=== PATIENT | female | born 1950 | race Caucasian/White ===

== ENCOUNTER 2017-07-26 12:33 | Emergency (ER) | payer MEDICARE, BC ==
[~2017-07-26] VITALS: Ht 157.5 cm; Wt 90.7 kg
[2017-07-26 14:28] LABS: HEMATOCRIT 38.6 % (37.0-47.0); HEMOGLOBIN 12.8 g/dl (12.0-16.0); IMMATURE GRANULOCYTES 0.3 % (0.0-1.0); MEAN CELL VOLUME 91.3 fL CALC (80.0-100.0); MEAN CORPUSCULAR HGB 30.3 pG CALC (26.0-32.0); MEAN CORPUSCULAR HGB CONC 33.2 g/L CALC (32.0-36.0); RED BLOOD COUNT 4.23 mill/uL (4.20-5.60)
[2017-07-26 14:45] LABS: PROTHROMBIN TIME 10.7 SECONDS (9.0-12.5)
[2017-07-26 14:50] LABS: ANION GAP 18 (6-22 (CALC)); BUN 23 mg/dL (8-23); BUN/CREATININE RATIO 29 (12-20 (CALC)); CALCIUM 9.9 mg/dL (8.4-10.2); CARBON DIOXIDE 24 mmol/l (22-30); CHLORIDE 108 mmol/l (95-108); CREATININE 0.8 mg/dL (0.5-1.0); GFR > 60 ML/MIN (>=60 (CALC)); GFR FOR AFR.AMER. > 60 ML/MIN (>=60 (CALC)); GLUCOSE 100 mg/dL (82-115); NEUT# 2.72 thou/uL (2.00-7.15); POTASSIUM 4.5 mmol/l (3.5-5.1); SODIUM 147 mmol/l (137-146)
[2017-07-26 16:37] VITALS: BP 130/58
== END 2017-07-26 16:38 | disposition short-term general hospital (02) ==
LOC: ED 12:33
PROVIDERS: Family Medicine
DX: H54.61 Unqualified visual loss, right eye, normal vision left eye (principal); F17.200 Nicotine dependence, unspecified, uncomplicated

== ENCOUNTER 2018-07-25 10:27 | Emergency (ER) | payer MEDICARE, BC ==
[~2018-07-25] VITALS: Ht 157.5 cm; Wt 86.2 kg
[2018-07-25] MEDS ORDERED: BUPROPION100 MG PO (10:36)
[2018-07-25] MEDS ORDERED: GABAPENTIN100 MG PO (10:37)
[2018-07-25] MEDS ORDERED: CRESTOR10 MG PO (10:37)
[2018-07-25] MEDS ORDERED: METFORMIN500 MG PO (10:37)
[2018-07-25] MEDS ORDERED: CITALOPRAM20 MG PO (10:37)
[2018-07-25] MEDS ORDERED: VITAMIN D5000 UNIT PO (10:38)
[2018-07-25] MEDS ORDERED: COQ10200 MG PO (10:39)
[2018-07-25] MEDS ORDERED: ROSUVASTATIN CA10 MG PO (10:39)
[2018-07-25] MEDS ORDERED: AZITHROMYCIN500 MG PO (11:18)
[2018-07-25 11:25] VITALS: BP 135/77
== END 2018-07-25 11:25 | disposition home or self-care (01) ==
LOC: ED 10:27
DX: H66.92 Otitis media, unspecified, left ear (principal); E11.9 Type 2 diabetes mellitus without complications; C95.90 Leukemia, unspecified not having achieved remission; Z95.0 Presence of cardiac pacemaker

== ENCOUNTER 2018-12-20 17:29 | Emergency (ER) | payer MEDICARE, BC ==
[~2018-12-20] VITALS: Ht 157.5 cm; Wt 89.0 kg
[~2018-12-20 17:29] MED LIST: AZITHROMYCIN500 MG PO; BUPROPION100 MG PO; CITALOPRAM20 MG PO; COQ10200 MG PO; CRESTOR10 MG PO; GABAPENTIN100 MG PO; METFORMIN500 MG PO; ROSUVASTATIN CA10 MG PO; VITAMIN D5000 UNIT PO
[2018-12-20] MEDS ORDERED: CRESTOR40 MG PO (17:56)
[2018-12-20] MEDS ORDERED: CELEXA20 MG PO (17:56)
[2018-12-20] MEDS ORDERED: NEURONTIN300 MG PO (17:57)
[2018-12-20] MEDS ORDERED: KEFLEX500 M1 PO (18:09)
[2018-12-20 18:15] VITALS: BP 155/72
== END 2018-12-20 18:15 | disposition home or self-care (01) ==
LOC: ED 17:29
DX: T63.481A Toxic effect of venom of other arthropod, accidental (unintentional), initial encounter (principal); L03.011 Cellulitis of right finger; Y92.009 Unspecified place in unspecified non-institutional (private) residence as the place of occurrence of the external cause; R22.31 Localized swelling, mass and lump, right upper limb

== ENCOUNTER 2020-11-28 10:02 | Emergency (ER) | payer MEDICARE, BC ==
[~2020-11-28] VITALS: Ht 154.9 cm; Wt 100.0 kg
[~2020-11-28 10:02] MED LIST changes: +CELEXA20 MG PO; +CRESTOR40 MG PO; +KEFLEX500 M1 PO; +NEURONTIN300 MG PO
[2020-11-28 12:01] LABS: HEMATOCRIT 36.2 % (37.0-47.0); HEMOGLOBIN 11.2 g/dl (12.0-16.0); IMMATURE GRANULOCYTES 0.8 % (0.0-5.0); MEAN CELL VOLUME 93.5 fL CALC (80.0-100.0); MEAN CORPUSCULAR HGB 28.9 pG CALC (26.0-32.0); MEAN CORPUSCULAR HGB CONC 30.9 g/dL CAL (32.0-36.0); NEUT# 2.13 thou/uL (2.00-7.15); RED BLOOD COUNT 3.87 mill/uL (4.20-5.60); RED CELL DISTRI WIDTH 14.6 % (11.5-15.5)
[2020-11-28 12:20] LABS: ALBUMIN 4.2 g/dL (3.2-5.0); ALKALINE PHOSPHATASE 97 u/l (38-126); ANION GAP 12 (6-22 (CALC)); BILIRUBIN, TOTAL 0.8 mg/dL (0.0-1.4); BUN 13 mg/dL (8-23); BUN/CREATININE RATIO 20 (12-20 (CALC)); CARBON DIOXIDE 31 mmol/l (22-30); CHLORIDE 100 mmol/l (95-108); CREATININE 0.7 mg/dL (0.5-1.0); GFR > 60 ML/MIN (>=60 (CALC)); GFR FOR AFR.AMER. > 60 ML/MIN (>=60 (CALC)); POTASSIUM 4.2 mmol/l (3.5-5.1); SGOT/AST 25 u/l (9-36); SODIUM 139 mmol/l (137-146); TOTAL PROTEIN 7.3 g/dL (6.3-8.2)
[2020-11-28] MEDS ORDERED: HYDROCO/APAP1 TA9 PO (14:52)
[2020-11-28 15:54] VITALS: BP 134/62
== END 2020-11-28 16:05 | disposition home or self-care (01) ==
LOC: ED 10:02
PROVIDERS: Family Medicine
DX: R16.1 Splenomegaly, not elsewhere classified (principal); M89.9 Disorder of bone, unspecified; E66.9 Obesity, unspecified; E11.9 Type 2 diabetes mellitus without complications; I10 Essential (primary) hypertension; C95.90 Leukemia, unspecified not having achieved remission; Z95.0 Presence of cardiac pacemaker; Z85.43 Personal history of malignant neoplasm of ovary
CPT/HCPCS: Q9967

== ENCOUNTER 2020-11-29 19:29 | Observation (INO) | payer MEDICARE, BC ==
[~2020-11-29] VITALS: Ht 162.6 cm; Wt 102.0 kg
[~2020-11-29 19:29] MED LIST changes: +HYDROCO/APAP1 TA9 PO
--- NOTE | 2020-11-29 19:35 | NUR ---
BY WC TO ROOM
[2020-11-29 20:18] LABS: HEMATOCRIT 37.6 % (37.0-47.0); HEMOGLOBIN 11.7 g/dl (12.0-16.0); IMMATURE GRANULOCYTES 0.5 % (0.0-5.0); MEAN CORPUSCULAR HGB 29.3 pG CALC (26.0-32.0); MEAN CORPUSCULAR HGB CONC 31.1 g/dL CAL (32.0-36.0); NEUT# 4.68 thou/uL (2.00-7.15); RED CELL DISTRI WIDTH 14.6 % (11.5-15.5)
[2020-11-29 20:29] LABS: ALBUMIN 4.5 g/dL (3.2-5.0); ALKALINE PHOSPHATASE 102 u/l (38-126); AMYLASE 60 u/l (30-110); ANION GAP 14 (6-22 (CALC)); BUN 16 mg/dL (8-23); BUN/CREATININE RATIO 18 (12-20 (CALC)); CARBON DIOXIDE 28 mmol/l (22-30); CHLORIDE 99 mmol/l (95-108); CREATININE 0.9 mg/dL (0.5-1.0); GFR > 60 ML/MIN (>=60 (CALC)); GFR FOR AFR.AMER. > 60 ML/MIN (>=60 (CALC)); LIPASE 199 u/l (23-300); MAGNESIUM 1.5 mg/dL (1.6-2.3); POTASSIUM 4.1 mmol/l (3.5-5.1); SGOT/AST 24 u/l (9-36); SODIUM 137 mmol/l (137-146); TOTAL PROTEIN 7.6 g/dL (6.3-8.2)
--- NOTE | 2020-11-29 20:45 | NUR ---
PT BACK FROM CT. PAIN A LITTLE BETTER 04/13 PT. WAITING ON TEST RESULTS.
[2020-11-29 21:29] LABS: URINE BLOOD DIPSTICK MODERATE (NEGATIVE); URINE COLOR YELLOW; URINE GLUCOSE - DIPSTICK NEGATIVE (NEGATIVE); URINE KETONE NEGATIVE (NEGATIVE); URINE LEUK ESTERASE NEGATIVE (NEGATIVE); URINE NITRITE - DIPSTICK NEGATIVE (Negative); URINE PROTEIN - DIPSTICK 100 mg/dL (NEG-TRACE); URINE SPECIFIC GRAVITY >=1.030; URINE UROBILINOGEN - DIPSTICK 0.2 E.U./dL (0.2)
[2020-11-29 21:30] LABS: URINE BILIRUBIN - DIPSTICK NEGATIVE (NEGATIVE)
[2020-11-29 21:37] LABS: URINE CALCIUM OXALATE CRYSTALS MANY lpf; URINE SQUAMOUS EPITHELIAL CELL FEW EPI/hpf (0-FEW)
--- NOTE | 2020-11-29 21:45 | NUR ---
STILL WAITING ON CT RESULTS.
--- NOTE | 2020-11-29 22:20 | NUR ---
PT CALLED STATING SHE NEEDS HELP GETTING OUT OF THE BED TO CHAIR. INFORMED PT SHE CANNOT SIT IN THE CHAIR. I INFORMED PT PRIOR TO MEDICATING WITH PAIN MEDICATION THAT SHE WOULD NOT BE ABLE TO SIT IN CHAIR DUE TO BEING UNSAFE. INFORMED DR SUE PT STILL HAVING PAIN NEW ORDER TO BE PLACED.
--- NOTE | 2020-11-29 22:29 | NUR ---
MEDICATED WITH TORADOL 30 MG IV.
--- NOTE | 2020-11-29 22:42 | NUR ---
AMBULATED TO AND FROM BATHROOM WITH STANBY ASSIST-TOLERATED WELL. C/O PAIN WITH ANY MOVEMENT
--- NOTE | 2020-11-29 23:20 | NUR ---
PAIN DOWN TO 5/10. CALL OUT TO ONCOLOGIST AT [facility].
--- NOTE | 2020-11-30 00:20 | NUR ---
DR SUE IN TO DISCUSS PLAN OF CARE. ONCOLOGIST HAS NOT CALLED BACK FOR OVER 1 HOUR.
--- NOTE | 2020-11-30 00:44 | NUR ---
REPORT GIVEN TO GERRY SEGUNDO.
--- NOTE | 2020-11-30 00:55 | NUR ---
Admission Note Report Given to: RATNA Transported by: Wheelchair X Stretcher Transported with: X Nurse Transporter X Patent IV O2 Park Guide Location: ICU X MS2 TRANSPORTED BY GERRY HALLMAN
[2020-11-30 01:03] VITALS: BP 166/68
--- NOTE | 2020-11-30 04:15 | NUR ---
PT C/O OF PAIN. PT RECEIEVED IV MORPHINE AND ZOFRAN. WILL CONTINUE TO MONITOR.
[2020-11-30 04:22] VITALS: BP 155/55
[2020-11-30 06:51] LABS: HEMATOCRIT 33.3 % (37.0-47.0); HEMOGLOBIN 10.5 g/dl (12.0-16.0); IMMATURE GRANULOCYTES 0.6 % (0.0-5.0); MEAN CELL VOLUME 92.8 fL CALC (80.0-100.0); MEAN CORPUSCULAR HGB 29.2 pG CALC (26.0-32.0); MEAN CORPUSCULAR HGB CONC 31.5 g/dL CAL (32.0-36.0); NEUT# 3.9 thou/uL (2.00-7.15); RED BLOOD COUNT 3.59 mill/uL (4.20-5.60); RED CELL DISTRI WIDTH 14.7 % (11.5-15.5)
[2020-11-30 08:30] VITALS: BP 137/50
--- NOTE | 2020-11-30 08:30 | NUR ---
ASSESSMENT IS COMPLETED: IV SITE IS FREE FROM REDNESS OR EDMEA. HR IS REG,PULSES ARE STRONG X4, ABD IS SOFT WITH ACTIVE BS. BREATH SOUNDS ARE CLEAR,BILATERALLY. CONTINUE TO OSBERVE AND MONITOR.
--- NOTE | 2020-11-30 12:45 | NUR ---
PT TRANSPORTED TO MRI VIA AT 1200 RETURNED AT 1236 DUE TO HAVING A PACE MAKER UNABLE TO COMPLETE THE TEST. IV SITE IS FREE FROM REDNESS OR EDEMA. CONTINUE TO OSBERVE AND MONITOR.
[2020-11-30 14:45] VITALS: BP 114/44
--- NOTE | 2020-11-30 16:45 | NUR ---
PT IS SITTING IN THE CHAIR, NO DITRESS NOTED. IV SITE ISF REE CHEYANNE SUAREZ.
[2020-11-30 19:50] VITALS: BP 129/51
[2020-12-01 03:55] VITALS: BP 192/75
[2020-12-01 05:06] LABS: HEMATOCRIT 34.8 % (37.0-47.0); HEMOGLOBIN 10.6 g/dl (12.0-16.0); MEAN CELL VOLUME 95.6 fL CALC (80.0-100.0); MEAN CORPUSCULAR HGB 29.1 pG CALC (26.0-32.0); MEAN CORPUSCULAR HGB CONC 30.5 g/dL CAL (32.0-36.0); RED BLOOD COUNT 3.64 mill/uL (4.20-5.60)
--- NOTE | 2020-12-01 05:12 | NUR ---
PATIENT IS ALERT AND ORIENTED X3 ABLE TO MAKE NEEDS KNOWN. RESPIRATIONS EASY ON ROOM AIR. LUNG SOUNDS CLEAR BILATERALLY. HR REGULAR. SKIN WARM AND DRY. BEEN UP IN CHAIR ALL NIGHT. C/O PAIN ADDRESSED WITH PRN PERCOCET, TORADOL, AND DILAUDID. VAD INFUSING IVF AT 75 ML/HR. TOLERATING WELL. NON SLIP SOCKS ON AND CALL LIGHT NEXT TO PATIENT.
[2020-12-01 05:27] VITALS: BP 106/59
[2020-12-01 05:28] LABS: ALBUMIN 4.2 g/dL (3.2-5.0); ALKALINE PHOSPHATASE 92 u/l (38-126); ANION GAP 14 (6-22 (CALC)); BUN 19 mg/dL (8-23); BUN/CREATININE RATIO 32 (12-20 (CALC)); CARBON DIOXIDE 26 mmol/l (22-30); CHLORIDE 101 mmol/l (95-108); CREATININE 0.6 mg/dL (0.5-1.0); GFR > 60 ML/MIN (>=60 (CALC)); GFR FOR AFR.AMER. > 60 ML/MIN (>=60 (CALC)); MAGNESIUM 1.7 mg/dL (1.6-2.3); POTASSIUM 4.2 mmol/l (3.5-5.1); SGOT/AST 21 u/l (9-36); SODIUM 136 mmol/l (137-146); TOTAL PROTEIN 7.2 g/dL (6.3-8.2)
--- NOTE | 2020-12-01 08:00 | NUR ---
PATIENT IS IN PAIN. STATES HER CANCER DR HAS NOT CALLED HER BACK ND IS AWAITING PAIN MANAGEMENT FROM HER
--- NOTE | 2020-12-01 12:00 | NUR ---
PATIENT IV WAS LEAKING. IV REMOVED AND AWAITING NEW PLACEMENT. MD REQUESTS TO WEAN PATIENT OFF OF IV PAIN MEDICATION
[2020-12-01 15:00] VITALS: BP 150/84
[2020-12-01 19:00] VITALS: BP 187/90
--- NOTE | 2020-12-01 21:51 | NUR ---
PT UP IN CHAIR AT TIME OF ASSESSMENT. LOTS OF COMPLAINTS OF PAIN IN HER BDOMEN AND BACK, MEDICATED WITH DILAUDID. MEDICATION EFFECTIVE. NO S/S OF ANXIETY AT THIS TIME. BREATHING EVEN AND UNLABORED. LUNGS CTA. NO CONCERNS RELATED T PAIN DUE TO MEDICATION BEING EFFECTIVE. BS ACIVE X 4. SKILLED INSTRUCTION RELATED TO THE EFFECT OPIODS HAVE ON THE GI SYSTEM. PT IS COMSTIPATED AT THIS TIME. PT GIVEN PRN MIRALAX. WILL MONITOR FOR EFFECTIVENESS.
--- NOTE | 2020-12-02 01:22 | NUR ---
PT IN ROOM AT THSI TIME SITTING UP IN CHAIR. PT INDICATED SHE CONTINUES TO HAVE PAIN IN HER BACK AND ABDOMEN. NOTED PT WALKING AROUND ROOM WITHOUT DIFFICULTY, ONCE NURSE ENTERS ROOM PT BENDS OVER IN PAIN. WILL MONITOR
--- NOTE | 2020-12-02 04:17 | NUR ---
PT UP IN CHAIR AT TIME OF ROUNDS. BREATHING EVEN AND UNLABORED. PT INDICATED THAT SHE STILL HAD PAIN "BUT WHAT CAN I DO, ITS ALWAYS THERE", PT LOOKS MUCH MORE COMFORTABLE SINCE LAST ASSESSMENT. REPORTS PAIN IN HER BACK AND ABDOMEN. PT REPORTS THE PAIN IS TOLERABLE NOW AND MUCH IMPROVED SINCE ADMISSION. WILL CONTINUE TO MONITOR.
[2020-12-02 05:25] VITALS: BP 167/76
[2020-12-02 05:52] LABS: HEMATOCRIT 36.4 % (37.0-47.0); HEMOGLOBIN 11.4 g/dl (12.0-16.0); IMMATURE GRANULOCYTES 0.5 % (0.0-5.0); MEAN CELL VOLUME 94.1 fL CALC (80.0-100.0); MEAN CORPUSCULAR HGB 29.5 pG CALC (26.0-32.0); MEAN CORPUSCULAR HGB CONC 31.3 g/dL CAL (32.0-36.0); NEUT# 4.03 thou/uL (2.00-7.15); RED BLOOD COUNT 3.87 mill/uL (4.20-5.60); RED CELL DISTRI WIDTH 14.8 % (11.5-15.5)
[2020-12-02 06:08] LABS: ALBUMIN 4.4 g/dL (3.2-5.0); ALKALINE PHOSPHATASE 88 u/l (38-126); ANION GAP 14 (6-22 (CALC)); BILIRUBIN, TOTAL 1.2 mg/dL (0.0-1.4); BUN 11 mg/dL (8-23); BUN/CREATININE RATIO 22 (12-20 (CALC)); CARBON DIOXIDE 26 mmol/l (22-30); CHLORIDE 102 mmol/l (95-108); CREATININE 0.5 mg/dL (0.5-1.0); GFR > 60 ML/MIN (>=60 (CALC)); GFR FOR AFR.AMER. > 60 ML/MIN (>=60 (CALC)); MAGNESIUM 1.6 mg/dL (1.6-2.3); SGOT/AST 23 u/l (9-36); SODIUM 138 mmol/l (137-146); TOTAL PROTEIN 7.5 g/dL (6.3-8.2)
[2020-12-02 07:46] VITALS: BP 144/65
--- NOTE | 2020-12-02 07:46 | NUR ---
ASSESSMENT IS COMPLETED: IV SITE IS FREE FROM REDNESS OR EDEMA. HR IS REG,PULSES ARE STRONG X4, ABD IS SOFT WITH ACTIVE BS. BREATH SOUNDS ARE CLEAR,BILATERALLY, PT HAS BEEN PASSING FLATUS. CONTINUE TO OSBERVE AND MONITOR.
--- NOTE | 2020-12-02 12:30 | NUR ---
PT HAS BEEN IN THE CHAIR AND THEN THE BED. WITH NO DISTRESS NOTED. IV SITE IS FREE FROM REDNESS OR EDEAM.
[2020-12-02 15:17] VITALS: BP 151/58
--- NOTE | 2020-12-02 16:30 | NUR ---
PT IS SITTING IN THE CHAIR WITH HER EYES CLOSED. NO DISTRESS NTOED, IV SITE IS FREE FROM REDNESS OR EDEMA.
[2020-12-02 19:00] VITALS: BP 164/77
--- NOTE | 2020-12-02 19:42 | NUR ---
PT FOUND UP MOVING AROUND BENDING OVER NEXT TO THE BED. I OFFERED ASSISTANCE. SHE IS SITTING IN RECLINER NOW, C/O BACK PAIN AND CONSTIPATION. PT MEDICATED FOR PAIN AND I ATTEMPTED TO GIVE HER MILK OF MAG, BUT SHE REFUSED STATING THAT IT "MAKES ME SICK." I PROVIDED WARMED PRUNE JUICE AND MIRILAX FOR CONSTIPATION. EDUCATED HER ON THE PAIN MEDICATIONS AFFECT ON STOOL OUTPUT, SHE VERBALIZED UNDERSTANDING. FRESH ICEWATER PROVIDED ALONG WITH COMFORT MEASURES. LABS REVIEWED WITH PT PER REQUEST. CALL LIGHT W/IN REACH, SHE DENIED ANY OTHER NEEDS AT THIS TIME.
[2020-12-03 04:00] VITALS: BP 189/93
--- NOTE | 2020-12-03 04:35 | NUR ---
PT MEDICATED FOR PAIN, SHE IS UPRIGHT IN THE RECLINER. REPORTS PAIN 7/10 IN BACK AND RADIATING AROUND TO FRONT UPPER QUAD OF ABD. COOLPACK AND WARMPACK PROVIDED WITH PILLOWS FOR COMFORT.
[2020-12-03 05:15] VITALS: BP 152/73
[2020-12-03 06:14] LABS: HEMATOCRIT 32.4 % (37.0-47.0); HEMOGLOBIN 10.1 g/dl (12.0-16.0); MEAN CELL VOLUME 92.6 fL CALC (80.0-100.0); MEAN CORPUSCULAR HGB 28.9 pG CALC (26.0-32.0); MEAN CORPUSCULAR HGB CONC 31.2 g/dL CAL (32.0-36.0); RED BLOOD COUNT 3.5 mill/uL (4.20-5.60)
[2020-12-03 06:23] LABS: ANION GAP 15 (6-22 (CALC)); BUN 10 mg/dL (8-23); BUN/CREATININE RATIO 21 (12-20 (CALC)); CARBON DIOXIDE 23 mmol/l (22-30); CHLORIDE 101 mmol/l (95-108); CREATININE 0.5 mg/dL (0.5-1.0); GFR > 60 ML/MIN (>=60 (CALC)); GFR FOR AFR.AMER. > 60 ML/MIN (>=60 (CALC)); POTASSIUM 3.8 mmol/l (3.5-5.1); SODIUM 135 mmol/l (137-146)
--- NOTE | 2020-12-03 07:35 | NUR ---
REPORT RECEIVED FROM GERRY CHACKO. PT SITTING UP IN CHAIR; ALERT AND ORIENTED. C/O 5/10 CHRONIC LOWER BACK PAIN, DECREASED APETITE. APPEARS ANXIOUS AND ADMITS TO ANXIETY WHEN ASKED; STATES THAT SHE NEEDS TO BE DISCHARGED TODAY DUE TO SCHEDULED PET SCAN TOMORROW THAT SHE NEEDS TO MAKE IT TOO. RESPIRATIONS EVEN AND UNLABORED ON ROOM AIR; PT DOES C/O MILD DISCOMFORT TO CENTER OF CHEST DURING BREATHING. IV FLUIDS INFUSING INFUSING WITHOUT DIFFCULTY; 22G IV TO LAC APPEARS HEALTHY; 2+ PEDAL EDEMA. ACCU CHECK IS 116. POC REVIEWED; PT ENCOURAGED TO VERBALIZE CONCERNS; HAS CONCERNS ABOUT HER BOWELS AND CONSTIPATION; REQUESTS MILK OF MAGNESIA MIXED WITH WARM PRUNE JUICE. SAFETY MEASURES IN PLACE. CALL LIGHT WITHIN REACH.
[2020-12-03 07:53] VITALS: BP 185/83
[2020-12-03] MEDS ORDERED: PERCOCET1 TA4 PO (11:00)
--- NOTE | 2020-12-03 11:55 | NUR ---
RADIOLOGY AT BEDSIDE FOR PORTABLE ABDOMINAL XRAY/ KUB. PT POSITIONED INTO BED FOR SCAN.
--- NOTE | 2020-12-03 12:50 | NUR ---
TORADOL GIVEN FOR PAIN. DULCOLAX SUPPOSITORY GIVEN AT THIS TIME. PT AMBULATED TO RESTROOM WITH WALKER FOR VOID.
--- NOTE | 2020-12-03 14:26 | NUR ---
IV site discontinued, cath intact. No edema , no redness, voices no discomfort.
--- NOTE | 2020-12-03 14:31 | NUR ---
RT AT BEDSIDE FOR EVAL PRIOR TO DISCHARGE; PT REQUIRES WALKER FOR AMBULATION; PROVIDED TO PATIENT TO TAKE HOME ALONG WITH PRESCRIPTION FROM [facility].
[2020-12-03 14:33] VITALS: BP 162/72
--- NOTE | 2020-12-03 15:02 | NUR ---
Discharge instructions given. Patient verbalizes understanding of same. Discharged in stable condition via Wheelchair to Home with family. All belongings sent with pt INCLUDING WALKER.
--- NOTE | 2020-12-03 15:21 | NUR ---
PT note Patient is seen for gait training. She is preparing to go home. She is able to stand with FWW and needs one for home. She is instructed in FWW use for home. She is independent with FWW use and would benefit from this and home health for follow up rehabilitation.
== END 2020-12-03 15:02 | disposition home or self-care (01) ==
LOC: ED 19:29 → ED-I 11-30 00:18 → ED 11-30 00:33 → MS2 11-30 00:34
PROVIDERS: Family Medicine; Nurse Practitioner; Physician Assistant; ADMIT Internal Medicine; ATTEND Internal Medicine
DX: M89.9 Disorder of bone, unspecified (principal); R16.1 Splenomegaly, not elsewhere classified; K59.03 Drug induced constipation; T40.2X5A Adverse effect of other opioids, initial encounter; C91.11 Chronic lymphocytic leukemia of B-cell type in remission; E11.9 Type 2 diabetes mellitus without complications; F41.9 Anxiety disorder, unspecified; F32.9 Major depressive disorder, single episode, unspecified; E78.5 Hyperlipidemia, unspecified; E83.42 Hypomagnesemia; Z85.43 Personal history of malignant neoplasm of ovary; Z79.84 Long term (current) use of oral hypoglycemic drugs; Z95.0 Presence of cardiac pacemaker; Z20.822 Contact with and (suspected) exposure to COVID-19
CPT/HCPCS: J1650; J3475; Q9967